=== PATIENT | male | born 1950 | race Caucasian/White ===

== ENCOUNTER 2024-01-17 09:10 | Outpatient (CLI) | payer OTHER | END 2024-01-17 09:11 | disposition home or self-care (01) | LOC: CT 09:10 | PROVIDERS: ATTEND Thoracic Surgery (Cardiothoracic Vascular Surgery) | DX: I71.40 Abdominal aortic aneurysm, without rupture, unspecified (principal); I71.43 Infrarenal abdominal aortic aneurysm, without rupture; K55.1 Chronic vascular disorders of intestine | CPT/HCPCS: 74174; 82565 ==